=== PATIENT | male | born 1965 | race Caucasian/White ===

== ENCOUNTER → 2020-07-14 | Outpatient (CLI) | payer SELFPAY | LOC: M LABSMTC 11:08 | PROVIDERS: ATTEND Pediatrics | DX: Z20.828 Contact with and (suspected) exposure to other viral communicable diseases (principal) ==

== ENCOUNTER → 2020-08-19 | Outpatient (CLI) | payer OTHER ==
[~2020-08-19] MED LIST: ISOVUE-370 76% 100ML VIAL As Ordered ONE
--- NOTE | 2020-08-19 10:45 | REP ---
INDICATION: SIALOLITHIASIS. COMPARISON: None. TECHNIQUE: As requested, pre and post intravenous contrast enhanced scanning is performed. Helical scanning is acquired and 3 mm axial images re-formatted. Coronal and sagittal MPR images are generated. The contrast enhancement dose is 75 mL of intravenous ProHance. FINDINGS: Preliminary digital digital account executive radiographs are unremarkable. There is mild mucosal thickening seen inferiorly in the right maxillary sinus. The visualized paranasal sinuses are otherwise clear. The parotid glands are normal and symmetric. The left submandibular gland is normal in appearance. The right submandibular trupti gland shows advanced and essentially complete fatty involution. There is a large right submandibular sialolith measuring 7 mm in size visible on both the pre and postcontrast imaging sequences. No other salivary gland calculus is appreciated. Tongue and floor of mouth structures are unremarkable. Tonsillar and peritonsillar soft tissues are intact. There is no evidence of neck mass or adenopathy. A small low-density areas seen in the inferior pole of the left thyroid lobe measuring 8 mm. Thyroid gland is otherwise homogeneous. No glottic or subglottic airway lesion is seen. The the lung apices are clear. No bony destructive lesion is appreciated. IMPRESSION: Large 7 mm right submandibular sialolith with advanced fatty involution of the right submandibular gland. Mild mucosal thickening is seen in the right maxillary sinus. Otherwise negative. <Electronically signed by Sj Lara > 08/19/20 1046
== END ==
LOC: M RAD 10:06
PROVIDERS: ATTEND Specialist
DX: K11.5 Sialolithiasis (principal); J32.0 Chronic maxillary sinusitis
CPT/HCPCS: 70492; Q9967